=== PATIENT | female | born 2000 | race Native Hawaiian/Other Pacific Islander ===

== ENCOUNTER 2022-03-06 15:21 | Emergency (ER) | payer BC ==
[~2022-03-06] VITALS: Ht 162.6 cm; Wt 53.2 kg
[2022-03-06 16:01] VITALS: TEMP 98.2
[2022-03-06 17:35] LABS: COLLECTION METHOD CLEAN CATCH
[2022-03-06 17:45] LABS: MUCOUS Present (NOT PRESENT); PH 7 (5-8); SQUAMOUS EPITHELIAL 0-2 /hpf (0-10); URINE APPEARANCE Hazy (CLEAR/HAZY); URINE BACTERIA None Seen /hpf (NONE SEEN); URINE BILIRUBIN Negative (NEGATIVE); URINE BLOOD 1+ (NEGATIVE); URINE COLOR Yellow (YELLOW); URINE GLUCOSE Negative (NEGATIVE); URINE KETONE Negative (NEGATIVE); URINE LEUKOCYTE ESTERASE 3+ (NEGATIVE); URINE NITRATE Negative (NEGATIVE); URINE PROTEIN(semi-quant) 1+ (NEGATIVE); URINE UROBILINOGEN Negative (NEGATIVE)
[2022-03-06] MEDS ORDERED: CEFTIN500 MG PO (18:09)
[2022-03-06 18:33] VITALS: BP 129/83; PULSE 78
== END 2022-03-06 18:36 | disposition home or self-care (01) ==
LOC: COL.ER 15:21
PROVIDERS: Physician Assistant
DX: N39.0 Urinary tract infection, site not specified (principal); Z28.311 Partially vaccinated for COVID-19; Z32.02 Encounter for pregnancy test, result negative

== ENCOUNTER 2022-07-19 16:18 | Emergency (ER) | payer BC ==
[~2022-07-19] VITALS: Ht 162.6 cm; Wt 50.0 kg
[~2022-07-19 16:18] MED LIST: CEFTIN500 MG PO
[2022-07-19 16:31] VITALS: TEMP 99.1
[2022-07-19 17:06] LABS: BASO % 0.4 % (0.0-2.0); EOS # 0.1 K/mm3 (0.0-0.7); EOS % 0.8 % (0.0-4.0); GRAN # 5.4 K/mm3 (1.4-6.5); GRAN % 68.1 % (42.2-75.2); HEMATOCRIT 34.3 % (35.0-45.0); HEMOGLOBIN 11.6 g/dl (12.0-15.0); LYMPH # 1.8 K/mm3 (1.2-3.4); LYMPH % 22.8 % (20.0-51.0); MEAN CELL VOLUME 87 fl (80.0-95.0); MEAN CORPUSCULAR HEMOGLOBIN 30 pg (26-32); MEAN CORPUSCULAR HGB CONC 34 g/dl (33.0-37.0); MONO # 0.6 K/mm3 (0.1-0.6); MONO % 7.6 % (1.7-9.3); PLATELET COUNT 277 K/mm3 (130-400); RED BLOOD COUNT 3.93 M/mm3 (4.10-5.30); REDCELL DISTRIBUTION WIDTH-CV 11.7 % (11.5-14.5)
[2022-07-19 17:26] LABS: ALBUMIN 4.3 gm/dL (3.5-5.0); BILIRUBIN,TOTAL 0.3 mg/dL (0.2-1.2); CALCIUM 9.2 mg/dL (8.4-10.2); CREATININE, serum 0.83 mg/dL (0.57-1.11); TOTAL PROTEIN 7.4 gm/dL (6.2-8.1)
[2022-07-19 18:13] VITALS: BP 114/66; PULSE 99
== END 2022-07-19 18:13 | disposition home or self-care (01) ==
LOC: COL.ER 16:18
PROVIDERS: Personal Emergency Response Attendant
DX: N93.9 Abnormal uterine and vaginal bleeding, unspecified (principal); D64.9 Anemia, unspecified